=== PATIENT | female | born 2000 | race African-American/Black ===

== ENCOUNTER 2024-08-05 04:01 | Inpatient (IN) | payer MEDICAID ==
[~2024-08-05] VITALS: Ht 162.6 cm; Wt 99.8 kg
[2024-08-05] MEDS: LACTATED RINGER'S 1,000 ML IV SCH (04:30)
[2024-08-05] MEDS ORDERED: DERMOPLAST 60ML BOTTLE TOP PRN (04:30)
[2024-08-05] MEDS ORDERED: PHISODERM TOP SOLN 240ML BTL TOP PRN (04:30)
[2024-08-05] MEDS ORDERED: BUTORPHANOL TARTRATE 2 MG/1 ML VIAL IV PRN ×2 (04:30)
[2024-08-05] MEDS ORDERED: WITCH HAZEL-GLYCERIN PAD TOP PRN (04:30)
[2024-08-05] MEDS ORDERED: LIDOCAINE 2%HCL (LOCAL ANESTH.) INJ 20ML MDV IJ PRN (04:30)
--- NOTE | 2024-08-05 05:04 | DVHHP2 ---
OB CC & HPI Date Date of Admission: Aug 05, 2024 Patient Identification: : 1 Para: 0 EGA: 32 to 34 wk estimated Chief Complaints: Reason for admission: active labor History of Present Complaints 24y AA female. G1Po IUP approx 34 wk based on approximate date of conception, December 2023 No care. Presented in active labor, 10cm dilated on arrival. Patient believes "her water broke" approximately 10 hours ago. Denies any significant PMHx Endorses use ot tobacco daily and THC use during . Past Medical History Cardiac: No pertinent Hx Pulmonary: No pertinent Hx Central Nervous System: No pertinent Hx GI: No pertinent Hx Hemotology/Oncology: No pertinent Hx Hepatobiliary: No pertinent Hx Psychiatric: No pertinent Hx Musculoskeletal: No pertinent Hx Rheumotologic: No pertinent Hx Infectious Disease: No peritnent Hx ENT: No pertinent Hx Renal/: No pertinent Hx Endocrine: No pertinent Hx Dermatology: No pertinent Hx Past Surgical History: No pertinent Hx OB History OB History Care: None Ultrasounds: No ultrasounds Current Medications Current Medications Medications (Trade) Dose Ordered Sig/Alejandro Route PRN Reason Start Time Stop Time Status Last Admin Lactated Ringer's 1,000 ml @ 125 mls/hr Q8H IV 08/05/24 04:30 UNV Witch Nkechi (Tucks) 1 pad PRN PRN TOP PERINEAL AREA DISCOMFORT 08/05/24 04:30 UNV Sodium Lauryl Sulfate (Phisoderm) 240 ml PRN PRN TOP PERINEAL AREA DISCOMFORT 08/05/24 04:30 UNV Benzocaine (Dermoplast) 1 applic PRN PRN TOP PERINEAL AREA DISCOMFORT 08/05/24 04:30 UNV Butorphanol Tartrate (Stadol Injection) 1 mg Q4HPRN PRN IV MODERATE PAIN (4-6 PAIN SCALE) 08/05/24 04:30 UNV Butorphanol Tartrate (Stadol Injection) 2 mg Q4HPRN PRN IV SEVERE PAIN (7-10 PAIN SCALE) 08/05/24 04:30 UNV Lidocaine HCl (Xylocaine) 20 ml ONCE PRN IJ PERINEAL AREA DISCOMFORT 08/05/24 04:30 UNV Family & Social History Family/Social History Blood Type: Unknown Rubella: unknown RPR/VDRL: Unknown GBS Status: Unknown HBsAG: Unknown Review of Systems Constitutional: No symptom reported Ears, Nose, & Throat: No symptom reported Eyes: No symptom reported Pulmonary/Respiratory: No symptom reported Cardiovascular: No symptom reported Gastrointestinal: No symptom reported Genitourinary: No symptom reported Musculoskeletal: No symptom reported Skin: No symptom reported Psychiatric: No symptom reported Endocrine: No symptom reported Hemotologic/Lymphatic: No symptom reported OB Admission Exam Physical Exam HEENT: NCAT Heart: Rhythm Normal Lungs: Clear Abdomen: Gravid Extremities: Normal Reflexes: Normal Cervical Dilatation: 10cm Effacement: 100% Station: +3 Membranes: Ruptured Amniotic Fluid: Clear Heart Rate: 130's Accelerations: Accelerations Present Decelerations: No Decelerations Short Term Variability: Present Hand Tier Variability: Average (6-25) Contractions on Admission: < 5 Minutes Apart Intensity: Firm OB Plan Plan Admitting Diagnosis: 1. Active LABOR, approx 34 wk 2. NO care 3. GBS unknown 4. Tobacco and THC use during Plan: Expectant Management Other Plan: Admit for imminent delivery, NICU staff notified OB labs, UDS ordered on patient Informed consent obtained for treatment counseling regarding tobacco and drug use x 15 mins ILYA ZHANG DO Aug 05, 2024 05:04
--- NOTE | 2024-08-05 05:06 | LDN2 ---
Labor and Delivery Note Date 08/05/24 Age 24 1 Para 1 EDC Unknown EGA estimated 34 wk Diagnosis No care, active labor Vaginal Delivery: VTX Vacuum Assisted: No Placenta: Spontaneous Sex: Male Weight 5lb 2oz Apgars 8/9 Amniotic Fluid: Clear Anesthesia None Episiotomy: No Repaired with 1st degree right periurethral vaginal lac repaired with 3/0 chromic Complications Uterine atony Comments/Significant Med Irena IM Pitocin x 10 units IM Methergine 0.2mg given ILYA ZHANG DO Aug 05, 2024 05:06
[2024-08-05] MEDS: OXYTOCIN 10UNIT/ML 1ML VIAL ONE (05:09)
[2024-08-05] MEDS: LACT. RINGERS/OXYTOCIN 20UNITS 1,000 ML IV ONE (05:11)
[2024-08-05] MEDS: METHYLERGONOVINE MALEATE 0.2 MG/ML AMP IM ONE (05:12)
[2024-08-05] MEDS: LIDOCAINE 2%HCL (LOCAL ANESTH.) INJ 10ml MDV ONE (05:14)
[2024-08-05 06:41] LABS: Urine Bacteria None Seen /hpf (None Seen)
[2024-08-05 06:46] LABS: Urine Blood Negative /uL (Negative); Urine Clarity Clear (Clear); Urine Color Light-Yellow (Yellow); Urine Protein, UAD TRACE (Negative); Urine Specific Gravity 1.018 (1.001-1.035); Urine Squamous Epithelial Cell FEW /hpf (<5); Urine Urobilinogen Normal (Negative); Urine WBC 1 /HPF (0-5)
[2024-08-05] MEDS ORDERED: ONDANSETRON ODT 4 MG TAB PO PRN (07:00)
[2024-08-05 07:03] LABS: Phencyclidine Screen, Urine Neg (NEGATIVE)
[2024-08-05 07:31] LABS: Amphetamine Screen, Urine Neg (NEGATIVE); Barbiturate Scree,Urine Neg (NEGATIVE); Benzodiazephine Screen, Urine Neg (NEGATIVE); Cannabinoid Screen, Urine Pos (NEGATIVE); Cocaine Screen, Urine Neg (NEGATIVE); Opiate Scree,Urine Neg (NEGATIVE)
[2024-08-05 08:12] LABS: Basophils # (auto) 0 10 ^3/uL (0-0.2); Eosinophils # (auto) 0 10 ^3/uL (0-0.8); Hemoglobin 11.7 g/dL (12.2-16.2); Lymphocytes # (auto) 1.1 10 ^3/uL (0.4-5.4); Lymphocytes % (auto) 4.4 % (10.0-50.0); Mean Corpuscular Hemoglobin 32.3 pg (28.0-32.0); Mean Corpuscular Hgb Conc. 34.3 g/dL (32.0-36.0); Mean Corpuscular Volume 94.3 fL (80.0-100.0); Monocytes # (auto) 1.2 10 ^3/uL (0-1.3); Monocytes % (auto) 4.8 % (0.0-12.0); Neutrophils # (auto) 23.4 10 ^3/uL (1.6-8.6); Neutrophils % (auto) 90.8 % (37.0-80.0); Platelet Count (auto) 190 10^3/uL (140-450); Red Cell Distribution Width 14.4 % (11.8-14.3); White Blood Cell 25.7 10^3/uL (4.4-10.8)
[2024-08-05 08:21] LABS: Alanine Aminotransferase 30 U/L (7-40); Albumin 4.2 g/dL (3.2-4.8); Anion Gap 9 (5-15); Aspartate Aminotransferase 29 U/L (13-40); BUN/Creatinine Ratio 6.2 (10.0-20.0); Calcium 9.6 mg/dL (8.7-10.4); Carbon Dioxide 20 mmol/L (20-31); Chloride 106 mmol/L (98-107); Glucose 104 mg/dL (74-106); Potassium 3.7 mmol/L (3.5-5.1); Total Protein 6.4 g/dL (5.7-8.2)
[2024-08-05] MEDS: IBUPROFEN 600 MG TAB PO PRN (08:21)
[2024-08-05 08:33] LABS: Alkaline Phosphatase 137 U/L (46-116); Bilirubin, Total 1.4 mg/dL (0.2-1.0); Blood Urea Nitrogen 5 mg/dL (9-23); Sodium 135 mmol/L (136-145)
[2024-08-05 08:39] LABS: Partial Thromboplastin Time 28.2 SEC (24.5-34.5); Prothrombin Time 10.6 sec (9.3-11.8)
[2024-08-05] MEDS: ceFAZolin 2 GM/D5W50ml 50 ML IV ONE (10:07)
[2024-08-05 11:00] VITALS: BP 128/68; PULSE 71; RESP 16; TEMP 98.1; O2SAT 100
[2024-08-05] MEDS: ACETAMINOPHEN 325 MG TAB PO PRN (14:16)
[2024-08-05 15:00] VITALS: BP 132/57; PULSE 84; RESP 16; TEMP 98.7; O2SAT 100
[2024-08-05] MEDS: ceFAZolin 1GM/50ML 50 ML IV SCH (17:31)
[2024-08-05 19:00] VITALS: BP 127/59; PULSE 81; RESP 16; TEMP 98.1; O2SAT 96
[2024-08-05] MEDS: DOCUSATE SOD 100 MG CAP PO SCH (23:26)
[2024-08-05 23:30] VITALS: BP 113/59; PULSE 79; RESP 18; TEMP 98.7; O2SAT 95
[2024-08-06 03:00] VITALS: BP 108/53; PULSE 62; RESP 16; TEMP 98.5; O2SAT 100
[2024-08-06 07:30] VITALS: BP 107/64; PULSE 76; RESP 17; TEMP 98.4; O2SAT 96
[2024-08-06 11:30] VITALS: BP 114/57; PULSE 76; RESP 17; TEMP 98.7; O2SAT 96
[2024-08-06 14:35] VITALS: BP 120/67; PULSE 71; RESP 18; TEMP 98.8; O2SAT 96
[2024-08-06 19:00] VITALS: BP 123/59; PULSE 73; RESP 18; TEMP 98.1; O2SAT 100
[2024-08-06 23:30] VITALS: BP 123/60; PULSE 73; RESP 18; TEMP 98.7; O2SAT 99
[2024-08-07 03:00] VITALS: BP 123/64; PULSE 72; RESP 16; TEMP 98; O2SAT 100
--- NOTE | 2024-08-07 06:17 | DVHPN2 ---
Chief Complaints Patient reports: No new complaints, Feels better Nursing reports: No new complaints, No abdominal pain, No chest pain, No dizziness, No cough Objective Vitals Vital Signs Date Time Temp Pulse Resp B/P (MAP) Pulse Ox O2 Delivery O2 Flow Rate FiO2 08/07/24 03:00 98.0 72 16 123/64 (83) 100 98.0 08/06/24 19:19 Room Air General: Normal Head/Eyes: Normal ENT: Normal Neck: Normal Lungs: Normal Cardiovascular: Normal Abdominal: Normal (uterus firm minimal lochia) Musculoskeletal: Normal Extremities: Normal Neurological: Normal Studies Laboratory Tests 08/05/24 07:29 Test 08/05/24 07:29 Range/Units Serum Glucose 104 74-106 mg/dL Ass/Plan Assessment S/P with lac Plan Advance care DERIK BENNETT DO Aug 07, 2024 06:17
--- NOTE | 2024-08-07 06:19 | DVHPN2 ---
Chief Complaints Patient reports: No new complaints, Feels better, Other (Post day #2) Nursing reports: No new complaints, No abdominal pain, No chest pain, No dizziness, No cough Objective Vitals Vital Signs Date Time Temp Pulse Resp B/P (MAP) Pulse Ox O2 Delivery O2 Flow Rate FiO2 08/07/24 03:00 98.0 72 16 123/64 (83) 100 98.0 08/06/24 19:19 Room Air General: Normal Head/Eyes: Normal ENT: Normal Neck: Normal Lungs: Normal Cardiovascular: Normal Abdominal: Normal (uterus firm minimal lochia) Musculoskeletal: Normal Extremities: Normal Neurological: Normal Studies Laboratory Tests 08/05/24 07:29 Test 08/05/24 07:29 Range/Units Serum Glucose 104 74-106 mg/dL Ass/Plan Assessment S/P with lac; Post Day II Plan See DC summary See DC orders DERIK BENNETT DO Aug 07, 2024 06:19
--- NOTE | 2024-08-07 06:21 | DVHDS2 ---
Obstetrics Discharge Summary Obstetrics Discharge Summary Date of Admission: Aug 05, 2024 Date of Discharge: Aug 07, 2024 Reason For Admission: Onset of Labor Intrapartum Procedures: Spontaneous vaginal deliv Procedures: None Operative Complicat: Laceration (Perineal) Discharge Diagnosis: Premature Labor, Delivery Discharge Information: Activity (pelvic rest 6 weeks), Diet (Routine), Medications (None), Instructions (Routine), Discharge to (Home), Discarge date (08/07/2024) DERIK BENNETT DO Aug 07, 2024 06:21
[2024-08-07 07:00] VITALS: BP 117/63; PULSE 71; RESP 15; TEMP 98.7; O2SAT 100
[2024-08-07 11:00] VITALS: BP 113/62; PULSE 75; RESP 16; TEMP 98.9; O2SAT 100
[2024-08-07 15:00] VITALS: BP 120/62; PULSE 77; RESP 16; TEMP 98.4; O2SAT 99
[2024-08-07 19:00] VITALS: BP 123/70; PULSE 86; RESP 16; TEMP 99.2; O2SAT 98
[2024-08-08 02:06] LABS: Rubella Antibodies, IgG 5.28 index (Immune >0.99)
[2024-08-08 03:06] LABS: RPR Non Reactive (Non Reactive)
== END 2024-08-07 20:21 | disposition home or self-care (01) | DRG 560 ==
LOC: LDRP 04:01 → OBSVTOIN 04:06 → LDRP 04:55
PROVIDERS: ADMIT Obstetrics & Gynecology; ATTEND Obstetrics & Gynecology
PROC: 10E0XZZ Delivery of Products of Conception, External Approach (ICD-10-PCS; principal; 2024-08-05)
PROC: 0HQ9XZZ Repair Perineum Skin, External Approach (ICD-10-PCS; 2024-08-05)
DX: O60.14X0 Preterm labor third trimester with preterm delivery third trimester, not applicable or unspecified (principal); Z37.0 Single live birth; O99.324 Drug use complicating childbirth; O62.2 Other uterine inertia; O70.0 First degree perineal laceration during delivery; Z3A.34 34 weeks gestation of pregnancy; F12.90 Cannabis use, unspecified, uncomplicated
CPT/HCPCS: 36415; 59409; 80053; 80307; 81001; 85025; 85610; 85730; 86592; 86703; 86762; 86803; 86850; 86900; 86901; 87340; 94760; 96372; G0378; J2003; J2590